=== PATIENT | male | born 1995 | race Caucasian/White ===

== ENCOUNTER 2021-01-06 15:46 | Emergency (ER) | payer BC ==
[2021-01-06 15:53] VITALS: BP 146/56; PULSE 74
[2021-01-06] MEDS ORDERED: Diphtheria,Pertussis(Acell),Tetanus Vaccine 0.5 ML Syringe IM ONE (16:25)
--- NOTE | 2021-01-06 16:25 | EDM.PDOC ---
ED HPI GENERAL MEDICAL PROBLEM - General Chief Complaint: Upper Extremity Injury/Pain Stated Complaint: left hand injury Time Seen by Provider: 01/06/21 16:15 Source of Information: Reports: Patient History Limitations: Reports: No Limitations - History of Present Illness INITIAL COMMENTS - FREE TEXT/NARRATIVE: Patient's emergency department today with complaints of injury to the left dorsum of his hand. Just prior to arrival the patient was at work working on a combine when a heavy piece of metal crushed his left hand on the distal metacarpal region. He has a couple of blood blisters and abrasions on the top. He denies any paresthesias to the left hand. He denies any other injury other than to the second and third distal meta carpals. He is able to flex and extend at the joints appropriately. Is unsure of what his last tetanus immunization was. He took some dalj-upw-ovydulh pain medicine prior to arrival applied some ice. He denies any other injury other than to the area described above. Treatments [employer]TER: Reports: Acetaminophen, Cold Therapy Left Hand Pain Score (Numeric/FACES): 6 - Related Data Allergies Allergy/AdvReac Type Severity Reaction Status Date / Time amoxicillin [Amoxicillin] Allergy Rash Verified 01/06/21 15:53 Home Meds: Home Meds Acetaminophen [Acetaminophen Extra Strength] 1,000 mg PO Q4HR PRN 11/30/14 [History] Omeprazole Magnesium [Prilosec Otc] 40 mg PO BID 01/06/21 [History] Past Medical History - Past Health History Medical/Surgical History: Denies Medical/Surgical History Social & Family History - Tobacco Use Tobacco Use Status *Q: Never Tobacco User Second Hand Smoke Exposure: No - Caffeine Use Caffeine Use: Reports: Coffee, Soda - Recreational Drug Use Recreational Drug Use: No Review of Systems - Review of Systems Review Of Systems: Comprehensive ROS is negative, except as noted in HPI. ED EXAM, GENERAL - Physical Exam Exam: See Below Exam Limited By: No Limitations General Appearance: Alert, WD/WN, No Apparent Distress Respiratory/Chest: No Respiratory Distress Cardiovascular: Normal Peripheral Pulses Peripheral Pulses: 2+: Brachial (L), Radial (L) Extremities: Other (He is able to flex and extend at the MCP PIP DIP joints of all the fingers of the left hand. The rest of the head is atraumatic. CMS is intact appropriately.). No: Normal Inspection (On the left hand on the dorsal aspect of the distal metacarpals of the second and third fingers there is a area of contusion and swelling. There is some very superficial abrasions and a very small blood blister. Rest of the head is atraumatic. ) Course - Vital Signs Last Recorded V/S: Last Vital Signs Temp 98.6 F 01/06/21 15:47 Pulse 74 01/06/21 15:47 Resp 20 01/06/21 15:47 BP 146/56 H 01/06/21 15:47 Pulse Ox 100 01/06/21 15:47 - Orders/Labs/Meds Orders: Active Orders 24 hr Category Date Time Status Hand Comp Min 3V Lt [CR] Stat Exams 01/06/21 15:59 Taken Meds: Medications Discontinued Medications Generic Name Dose Route Start Last Admin Trade Name Freq PRN Reason Stop Dose Admin Diphtheria/Tetanus/Acell Pertussis 0.5 ml 01/06/21 16:25 01/06/21 16:29 Diphtheria,Pertussis(Acell),Tetanus Vaccine 0.5 Ml Syringe IM 01/06/21 16:26 0.5 ml .ONCE ONE Administration - Radiology Interpretation Free Text/Narrative:: X-ray of the left hand initially reviewed extemporaneously by myself. Shows no overt bony or osseous abnormality. No dislocation subluxation. Radiological review to follow. Patient Name: YULISA SINCLAIR Date of : 1995 Procedure: XRAY HAND MIN 3 VIEWS LT Date of Service: 01/06/2021 EXAM: XRAY HAND MIN 3 VIEWS LT INDICATION: ICD-10 S69.90XA Hand injury COMPARISON(S): None Available FINDINGS: 3 views of left hand were obtained 01/06/2021-no comparisons. Joint spaces are preserved. No acute fracture or dislocation. Soft tissue swelling is noted over the dorsum of the hand at the mid to distal metacarpals. If symptoms persist/if occult fracture site is suspected clinically, reexamination 10-14 days may be helpful. Finalized by: Tre Austin MD on 01/06/2021 4:39 PM CDT Patient/Procedure Information: [facility] MRN/JEFF: [id number]/ Order Number: [id number] Accession Number: [id number] Ordering Provider: YANG MCCORMICK Authorizing Provider: YANG MCCORMICK - Re-Assessments/Exams Free Text/Narrative Re-Assessment/Exam: 01/06/21 17:15 The abrasions on the hand do not need repair. His tetanus immunization was up-to-date. His x-ray is negative by my review as well as radiologic review. We will treat him conservatively with an Bobby wrap NSAIDs and rice therapy. Anything new or worse he is to recheck in the next week. He is comfortable with this plan his questions were answered. Departure - Departure Time of Disposition: 16:30 Disposition: Home, Self-Care 01 Clinical Impression: Contusion of hand, left Qualifiers: Encounter type: initial encounter Qualified Code(s): S60.222A - Contusion of left hand, initial encounter - Discharge Information Instructions: RICE Therapy for Routine Care of Injuries, [id number], Hand Contusion, [id number], Pain Medicine Instructions, [id number] Referrals: PCP,Unknown [Ordering Only Provider] - Forms: ED Department Discharge Additional Instructions: Bobby wrap for comfort. Tylenol and or Ibuprofen as needed for pain. RICE therapy as per discharge instructions. Cleanse abrasions twice daily with soap and water. Bacitracin and bandage until healed. Watch for infection. Your tetanus has been updated you are good for about 7-10 years now. Return to the ED if new or worsening symptoms Follow up with PCP in the next 7 days if not improving sooner if worse. Sepsis Event Note (ED) - Evaluation Sepsis Screening Result: No Definite Risk - Focused Exam Vital Signs: Vital Signs Temp Pulse Resp BP Pulse Ox 01/06/21 15:47 98.6 F 74 20 146/56 H 100 - My Orders Last 24 Hours: My Active Orders 01/06/21 15:59 Hand Comp Min 3V Lt [CR] Stat - Assessment/Plan Last 24 Hours: My Active Orders 01/06/21 15:59 Hand Comp Min 3V Lt [CR] Stat
== END 2021-01-06 16:42 | disposition home or self-care (01) ==
LOC: LL.ED 15:46
DX: S60.222A Contusion of left hand, initial encounter (principal); Z79.899 Other long term (current) drug therapy; Z88.0 Allergy status to penicillin; Z23 Encounter for immunization; W23.0XXA Caught, crushed, jammed, or pinched between moving objects, initial encounter; Y99.0 Civilian activity done for income or pay
CPT/HCPCS: 73130-LT; 90471; 90715; 99283; 99283-25